=== PATIENT | female | born 1995 | race Caucasian/White ===

== ENCOUNTER 2018-01-20 21:16 | Emergency (ER) | payer MEDICARE ==
[~2018-01-20] VITALS: Ht 157.5 cm; Wt 44.9 kg
[2018-01-20 21:20] VITALS: BP 125/70
--- NOTE | 2018-01-20 21:23 | NUR ---
TO LOBBY A/W BED, RICHARD ALMARAZ NOTED
--- NOTE | 2018-01-20 21:34 | NUR ---
PT AMBULATED TO ER BED 11
--- NOTE | 2018-01-20 21:40 | NUR ---
22 Y/O F W/C/O LEFT EAR PAIN, H/A, ON AND OFF FEVER, FOR 3 DAYS. PT DENIES N/V/D; SKIN IS INTACT, PINK/WARM/DRY; AAOX4, PERRL, WITH EVEN AND STEADY GAIT; LUNGS CLEAR BL, BREATHING UNLABORED; HR EVEN AND REGULAR, BL PERIPHERAL PULSES PRESENT; BS ACTIVE X4, NO TENDERNESS TO PALPATION, NO HEPATOSPLENOMEGALLY PALPATED, RESONANT TO PERCUSSION; PT DENIES ANY, CP, SOB, OR COUGH AT THIS TIME; PT STATES 9/10 PAIN AT THIS TIME IN L EAR; VSS; PATIENT POSITIONED FOR COMFORT; HOB ELEVATED; BEDRAILS UP X2; BED DOWN.
[2018-01-20] MEDS ORDERED: KETOROLAC 30 MG/ML VIAL IM ONE (22:35)
[2018-01-20] MEDS ORDERED: SUMAtriptan 25 MG TAB PO ONE (22:35)
--- NOTE | 2018-01-20 22:45 | NUR ---
PT RESTING IN BED AT THIS TIME. MOTHER AT BEDSIDE. NAD NOTED
--- NOTE | 2018-01-20 23:01 | NUR ---
LAVAGE PROCEDURE PERFORMED ON PT BILATERAL EARS. APPROXIMATELY 1400 ML SOLUTION OF WATER AND HYDROGEN PEROXIDE USED. FAMILY MEMBER PRESENT DURING PROCEDURE, PT REPORTED FEELING RELIEF IN BOTH EARS ONCE COMPLETE.
[2018-01-20] MEDS ORDERED: AMOXICILLIN 500 MG CAP PO ONE (23:10)
[2018-01-20 23:35] VITALS: BP 112/65
== END 2018-01-20 23:35 | disposition home or self-care (01) ==
LOC: MED 21:16
DX: H66.92 Otitis media, unspecified, left ear (principal)
CPT/HCPCS: 69209; 96372; 99283; J1885

== ENCOUNTER 2018-03-27 15:44 | Emergency (ER) | payer MEDICARE ==
[~2018-03-27] VITALS: Ht 162.6 cm; Wt 44.5 kg
[2018-03-27 15:51] VITALS: BP 117/68
--- NOTE | 2018-03-27 15:56 | NUR ---
PATIENT AMBULATED TO BED 5 AT THIS TIME.
--- NOTE | 2018-03-27 16:05 | NUR ---
PATIENT BIB SELF W/ C/O BL LEG NUMBNESS X TODAY. PT REPORTS "FEELING SICK ON AND OFF" X 4 DAYS W/ EAR PAIN. REPORT INTERMITTENT VOMITING AND TONGUE SWELLING. AIRWAY PATENT. NO S/S OF ACUTE REPIRATORY DISTRESS. AAOX4, GCS 15, SPEAKING IN FULL, COMPLETE SENTENCES. SKIN WARM AND DRY TO THE TOUCH, COLOR APPROPRIATE FOR ETNICITY. . PATIENT STATES PAIN OF 6/10 AT THIS TIME; VSS; PATIENT POSITIONED FOR COMFORT; HOB ELEVATED; BEDRAILS UP X2; BED DOWN. ER MD MADE AWARE OF PT STATUS.
--- NOTE | 2018-03-27 17:22 | NUR ---
Patient being evaluated by physician at bedside.
[2018-03-27 17:54] VITALS: BP 120/72
--- NOTE | 2018-03-27 17:54 | NUR ---
Patient discharged with v/s stable. Written and verbal after care instructions given and explained. Patient alert, oriented and verbalized understanding of instructions. Ambulatory with steady gait. All questions addressed prior to discharge. ID band removed. Patient advised to follow up with PMD. Rx of TESSALON NAPROSYN given. Patient educated on indication of medication including possible reaction and side effects. Opportunity to ask questions provided and answered.
== END 2018-03-27 17:54 | disposition home or self-care (01) ==
LOC: MED 15:44
DX: B34.9 Viral infection, unspecified (principal)
CPT/HCPCS: 99283

== ENCOUNTER 2018-05-13 12:25 | Emergency (ER) | payer BC, MEDICARE ==
[~2018-05-13] VITALS: Ht 157.5 cm; Wt 42.6 kg
[2018-05-13 13:24] VITALS: BP 114/76
[2018-05-13 14:20] VITALS: BP 114/76
== END 2018-05-13 14:21 | disposition home or self-care (01) ==
LOC: MED 12:25
DX: B09 Unspecified viral infection characterized by skin and mucous membrane lesions (principal)
CPT/HCPCS: 99283